=== PATIENT | male | born 1950 ===

== ENCOUNTER 2022-01-07 20:58 | Observation (INO) | payer OTHER, SELFPAY ==
[2022-01-07] VITALS (9 sets, daily range): BP systolic 143–147; BP diastolic 63–66; PULSE 75–92; RESP 15–23; TEMP 36.2; O2SAT 94–100
--- NOTE | ~2022-01-07 | NM_ITS ---
EXAMINATION: NM sabra stress w perfusion DATE: 01/08/2022 09:27 INDICATION: Chest pain TECHNIQUE: Rest images were obtained following intravenous administration of 11.8 mCi Tc99m tetrofosm in (Myoview). The patient was infused intravenously with Lexiscan (Regadenoson). Then, 34 mCi Tc99m t etrofosmin (Myoview) was administered intravenously, and stress images were obtained. Data was recons tructed into short axis and horizontal and vertical long axis SPECT images. Gated SPECT images were a lso obtained. COMPARISON: None. FINDINGS: There is no definite reversible or fixed perfusion abnormality to suggest ischemia or infar ction. There is normal left ventricular chamber size, wall motion and ejection fraction. Left ventr icular ejection fraction measures >70%. IMPRESSION: 1. Normal myocardial perfusion at rest and during stress. 2. Left ventricular ejection fraction measuring >70%. Reviewed, dictated and finalized at location A.
--- NOTE | ~2022-01-07 | XR_ITS ---
EXAMINATION: XR chest 2V DATE: 01/07/2022 22:04 INDICATION: Left-sided chest pain TECHNIQUE: PA and lateral views of the chest are obtained. COMPARISON: 05/01/2011 FINDINGS: The lungs are free of acute opacities. No pleural effusion or pneumothorax. The cardiomedia stinal silhouette is normal. There are bridging osteophytes at multiple levels in the spine, consiste nt with diffuse idiopathic skeletal hyperostosis (DISH). There is an acute fracture at the lateral as pect of the left fourth rib. IMPRESSION: 1. No acute cardiopulmonary abnormality. 2. Acute fracture at the lateral aspect of the left fourth rib. Reviewed, dictated and finalized at location A.
--- NOTE | 2022-01-07 20:59 | ECG_ITS ---
Measurements Intervals [place] Rate: 88 P: 39 HI: 177 QRS: -43 QRSD: 98 T: 79 QT: 317 QTc: 385 Interpretive Statements SINUS RHYTHM LEFT AXIS DEVIATION BASELINE ARTIFACT NONSPECIFIC T-WAVE ABNORMALITY BORDERLINE ECG NO PREVIOUS ECG AVAILABLE FOR COMPARISON Electronically Signed On 01-08-2022 16:03:46 CDT by Elliott Yarbrough M.D.
[2022-01-07 21:14] LABS: Basophils Percent Auto 0.5 % (0.2-1.2); Eosinophils Absolute Auto 0.2 K/mm3 (0-0.3); Eosinophils Percent Auto 1.9 % (0-4.4); Hematocrit 45.2 % (42.0-52.0); Hemoglobin 14.8 g/dL (14.0-18.0); Immature Granulocyte Absolute 0.04 K/mm3 (0.00-0.031); Immature Granulocyte Percent A 0.5 % (0-0.5); Lymphocytes Absolute Auto 1.78 K/mm3 (0.9-3.2); Lymphocytes Percent Auto 22.4 % (18.3-44.2); Mean Corpuscular HGB Conc 32.7 g/dl (32-36); Mean Corpuscular Volume 97.6 fl (80-100); Mean Platelet Volume 10.8 fl (7.4-10.4); Monocytes Absolute Auto 0.6 K/mm3 (0.1-0.6); Monocytes Percent Auto 7.3 % (2.6-8.5); Neutrophils Absolute Auto 5.3 K/mm3 (1.3-6.7); Neutrophils Percent Auto 67.4 % (45.5-73.1); Platelet Count Result 185 k/mm3 (150-375); Red Blood Count 4.63 M/mm3 (4.6-6.20); Red Cell Distribution Width 14.6 % (11.5-14.5); White Blood Count 7.9 K/mm3 (4.5-10.0)
[2022-01-07 21:25] LABS: INR 1.2; Prothrombin Time 14.3 Seconds (11.1-14.7)
[2022-01-07 21:26] LABS: Alanine Aminotransferase 32 U/L (6-50); Albumin Level 4.7 g/dL (3.5-5.1); Alkaline Phosphatase 44 U/L (38-126); Anion Gap 12 mmol/L (8-16); Aspartate Amino Transferase 33 U/L (17-59); Bilirubin,Total 0.8 mg/dL (0.2-1.3); Blood Urea Nitrogen 25 mg/dL (9-20); Calcium 9.9 mg/dL (8.4-10.2); Carbon Dioxide 27 mmol/L (22-30); Chloride 104 mmol/L (98-107); Estimated CRCL calculation 55 ml/min; Estimated Glomerular Filt Rate > 60; Glucose 107 mg/dL (65-110); Lipase 83 U/L (23-300); Partial Thromboplastin Time 35.8 SECONDS (22.3-36.8); Potassium 3.8 mmol/L (3.4-5.0); Sodium 143 mmol/L (137-145)
[2022-01-07 21:37] LABS: Troponin I < 0.012 ng/mL (0.000-0.034)
[2022-01-07] MEDS: ASPIRIN 81 MG CHEWABLE TABLET 324 MG PO (22:37)
--- NOTE | 2022-01-07 23:01 | PC.NURSE ---
Report given to IDRIS Pabon.
--- NOTE | 2022-01-07 23:04 | ED.CHESTPAIN ---
HPI - Chest Pain General Chief Complaint: Chest Pain Stated Complaint: CP Time Seen by Provider: 01/07/22 22:13 History of Present Illness HPI narrative: Patient is a 71-year-old male with a history of tobacco use, hyperlipidemia, hypertension presenting with chest pain. Patient states that he has a chronic cough from smoking. States that for the last 2 days he has had left-sided chest pain whenever he coughs. States that he also has the chest pain if he turns a certain way. He denies an exertional component to it. Endorses mild shortness of breath. No lightheadedness or palpitations. Denies fevers or chills, abdominal pain, nausea or vomiting, diarrhea, dysuria, leg swelling. Patient is vaccinated for COVID-19. Related Data Home Medications Medication Instructions Recorded Confirmed aspirin 81 mg tablet,delayed 81 mg PO DAILY 12/27/21 01/08/22 release (Adult Aspirin Regimen) multivitamin (One-A-Day Essential 1 tablet PO DAILY 12/27/21 01/08/22 tablet) fenofibrate 160 mg tablet 160 mg PO DAILY 01/08/22 01/08/22 omeprazole 20 mg capsule,delayed 20 mg PO DAILY 01/08/22 01/08/22 release simvastatin 40 mg tablet 40 mg PO DAILY 01/08/22 01/08/22 tamsulosin 0.4 mg capsule 0.4 mg PO BID 01/08/22 01/08/22 Allergies Allergy/AdvReac Type Severity Reaction Status Date / Time oxycodone AdvReac Unknown Nausea Verified 01/07/22 22:15 ASA AdvReac Nausea Uncoded 01/07/22 22:15 Review of Systems Review of Systems: All systems reviewed & are unremarkable except as noted in HPI and below PMFSH Past Medical History Medical History Decreased ROM of left shoulder Hx of fracture of patella Right Right shoulder pain Rotator cuff arthropathy Shoulder pain, bilateral Vision abnormalities Surgical History Surgical History History of carpal tunnel surgery of left wrist Family History Family History Father Myocardial infarction Sibling Mesothelioma Other Family history of arthritis Hypertension Social History Social History Smoking packs per day: 1 Smoking cigarettes per day: 20.0 Years smoked: 60 Smoking pack-years: 60.00 Smoking status: Current every day smoker Tobacco type: cigarettes Second hand tobacco smoke exposure: No Smoking end date: 02/02/19 Alcohol intake: current Drinks per week: 3 Substance use: never Substance use type: does not use Has the Lack of Transportation Kept You From Medical Appointments or From Getting Medications?: No Within the Past 12 Months, Were You Worried Whether Your Food Would Run Out Before You Got Money to Buy More?: Never True What is Your Housing Situation Today?: I Have Housing Are You Worried That in the Next 2 Months, You May Not Have Your Own Housing to Live In?: No Do You Have Trouble Paying Your Heating Or Electricity Bill?: No Do You Have Trouble Paying For Medicines?: No Are You Currently Unemployed and Looking for Work?: No Highest Level of Education Completed: High School Diploma/GED Do You Have Trouble With Childcare or the Care of a Family Member?: No Gender identity (if verbalized by the patient): Male Spiritual care concerns: No Exam Narrative: GENERAL: Well-appearing, well-nourished, and in no acute distress. HEAD: Normocephalic, atraumatic. EYES: PERRLA and EOMI. ENT: Nares clear, no rhinorrhea or epistaxis. Mucous membranes moist. NECK: Supple. CHEST: Diffuse wheezing, worse in the left lung. No respiratory distress. HEART: Regular rate and rhythm. No murmur heard. Normal peripheral pulses. ABDOMEN: Soft, nontender, nondistended, normal active bowel sounds. EXTREMITIES: Normal range of motion. No edema. SKIN: Warm, dry, no rash. NEURO: No focal deficits. Alert and oriented x3.
[2022-01-07] MEDS: IPRATROPIUM BR 0.02% INH SOLN 0.5 MG/2.5 ML VIAL INHALATION (23:12)
[2022-01-07] MEDS: ALBUTEROL SULFATE NEB 2.5 MG/3 ML INH 10 MG INHALATION (23:12)
--- NOTE | 2022-01-07 23:27 | PC.NURSE ---
Report received from IDRIS Ferrell. Assumed care of patient at this time.
[2022-01-07] MEDS: methylPREDNISolone SOD SUCC 125 MG VIAL IV PUSH (23:46)
[2022-01-08] VITALS (26 sets, daily range): BP systolic 135–158; BP diastolic 63–84; PULSE 63–89; RESP 16–25; TEMP 35.9–36.9; O2SAT 90–100; BMI 29.7
[2022-01-08 00:37] LABS: Influenza A QL RT-PCR Negative (Negative); Influenza B QL RT-PCR Negative (Negative); SARS-CoV-2 RNA PCR Negative
[2022-01-08 00:58] LABS: Troponin I < 0.012 ng/mL (0.000-0.034)
--- NOTE | 2022-01-08 01:09 | PM.IMHP ---
H&P: HPI History of Present Illness Date/Time: 01/08/22 01:09 Chief Complaint: chest pain Narrative: This is a 71-year-old male with past medical history significant for dyslipidemia, GERD, benign prostatic hyperplasia, tobacco dependence, smokes a pack of cigarettes daily. patient presents to the emergency room due to right-sided chest discomfort which is worse with movement he was also noted to be wheezing received a breathing treatment, patient has cough which is productive of white sputum which is his usual, denies any fevers, rigors, chills, nausea, vomiting, abdominal pain. Pain is localized to the precordial area , nonradiating, patient denies any with lightheadedness, dizziness, syncope, near syncope. Has been in his usual state of health up until this time. Patient tested negative for influenza a, B and COVID-19. preliminary workup has been essentially nonrevealing. Patient is been admitted for further evaluation management and treatment Review of Systems Review of Systems: chest pain Constitutional: Constitutional: Denies chills, Denies fatigue, Denies fever(s), Denies lethargy, Denies malaise and Denies poor appetite Eyes: Eyes: Denies change in vision ENT: Denies dysphagia, Denies vertigo, Denies dizziness and Denies odynophagia Cardiovascular: Cardiovascular: Reports chest pain, Denies syncope, Denies irregular heart rhythm, Denies leg edema, Denies lightheadedness, Denies radiating jaw, neck or arm pain and Denies palpitations Respiratory: Respiratory: Reports cough Gastrointestinal: Gastrointestinal: Denies abdominal pain, Denies dyspepsia, Denies heartburn, Denies diarrhea, Denies nausea and Denies vomiting Genitourinary: Genitourinary: Denies dysuria Musculoskeletal: Musculoskeletal: Denies myalgias Integumentary/Breasts: Skin/Breast: Denies rash Neurologic: Denies vertigo, Denies dizziness, Denies focal weakness and Denies Sensory deficit (Neuro) Psychiatric: Psychiatric: Reports no additional psychiatric complaints and Reports as per HPI Endocrine: Endocrine: Denies cold intolerance, Denies flushing, Denies heat intolerance, Denies polyphagia, Denies polydipsia and Denies palpitations Hematologic/Lymphatic: Hematologic/Lymphatic: Reports no additional hematologic/lymphatic complaints and Reports as per HPI Allergic/Immunologic: Allergic/Immunologic: Reports no additional allergic/immunologic complaints and Reports as per HPI [facility] Past Medical History Medical History Decreased ROM of left shoulder Hx of fracture of patella Right Right shoulder pain Rotator cuff arthropathy Shoulder pain, bilateral Vision abnormalities Surgical History Surgical History History of carpal tunnel surgery of left wrist Family History Family History (Updated 01/08/22 @ 01:52 by MARTINA Ivory) Father Myocardial infarction Sibling Mesothelioma Other Family history of arthritis Hypertension Social History Social History Smoking packs per day: 1 Smoking cigarettes per day: 20.0 Years smoked: 60 Smoking pack-years: 60.00 Smoking status: Current every day smoker Tobacco type: cigarettes Second hand tobacco smoke exposure: No Smoking end date: 02/02/19 Alcohol intake: current Drinks per week: 3 Substance use: never Substance use type: does not use Gender identity (if verbalized by the patient): Male Spiritual care concerns: No Has the Lack of Transportation Kept You From Medical Appointments or From Getting Medications?: No Within the Past 12 Months, Were You Worried Whether Your Food Would Run Out Before You Got Money to Buy More?: Never True What is Your Housing Situation Today?: I Have Housing Are You Worried That in the Next 2 Months, You May Not Have Your Own Housing to Live In?: No
--- NOTE | 2022-01-08 01:53 | ADMGEN ---
This patient, Zacarias Boyd, was admitted to IMU Room 202-01. Patient/family oriented to hospital policies and general routines including ID bracelet, bed and alarms, visiting hours, pain management, procedures, bathroom and other care routines, personal items, smoking policy, room service/diet, and visiting hours. Information on how to activate the Rapid Response Team has been discussed. Patient/Family are encouraged to report perceived risks to care and to ask questions if they do not understand what they are told or what they should do.
--- NOTE | 2022-01-08 03:12 | EST_ITS ---
Patient Info Name: Zacarias Boyd Age: 71 years : 1950 Gender: Male Ht: 70 in Wt: 207 lbs BSA: 2.18 m2 Exam Date: 01/08/2022 8:32 AM Exam Location: [facility] Stress Patient Status: Outpatient Admit Date: 01/08/2022 Staff Ordering Physician: John Davidson MD Attending Provider: John Davidson MD Exercise Technologist: Lima Jenkins RDCS Exercise Physician: Sheldon Marks DO Exam Type: CA stress sabra w NM Study Info Indications R07.9 - Chest pain, unspecified A regadenoson stress test was performed. Summary 1. 1. Negative lexiscan stress test for ischemic ST changes by ECG criteria. 2. 2. Baseline hypertension. 3. 3. Nuclear scan to follow and will be reported separately. Please correlate with it. 4. 4. Patient informed of the above results. Protocol: Lexiscan Stress ECG Details Stage: REST Duration (min): 0 min : 43 sec HR (bpm): 64 SBP (mmHg): 149 DBP (mmHg): 76 Stage: REST Duration (min): 13 min : 5 sec HR (bpm): 66 SBP (mmHg): 149 DBP (mmHg): 76 Stage: STAGE 1 Duration (min): 0 min : 59 sec HR (bpm): 84 SBP (mmHg): 149 DBP (mmHg): 76 Stage: RECOVERY Duration (min): 1 min : 0 sec HR (bpm): 98 SBP (mmHg): 149 DBP (mmHg): 59 Stage: RECOVERY Duration (min): 2 min : 0 sec HR (bpm): 96 SBP (mmHg): 149 DBP (mmHg): 59 Stage: RECOVERY Duration (min): 3 min : 0 sec HR (bpm): 90 SBP (mmHg): 146 DBP (mmHg): 57 Stage: RECOVERY Duration (min): 4 min : 0 sec HR (bpm): 87 SBP (mmHg): 146 DBP (mmHg): 57 Stage: RECOVERY Duration (min): 4 min : 47 sec HR (bpm): 90 SBP (mmHg): 143 DBP (mmHg): 58 Rest HR: 66 bpm Peak HR: 98 bpm Rest Sys BP: 149 mmHg Peak Sys BP: 151 mmHg Max Pred HR: 147 bpm % Max Pred HR: 67 % Target HR: 125 bpm Max RPP: 14,798 bpm*mmHg Termination Reason: Completed protocol Cardiac Symptoms: Shortness of breath Total Time: 1 min : 0 sec Rest David BP: 76 mmHg Peak David BP: 58 mmHg Total Dose: 0.4 mg Resting ECG Sinus rhythm, first degree AV block. Stress ECG No ST changes. Arrhythmias None. Report Signatures
[2022-01-08 03:36] LABS: Troponin I < 0.012 ng/mL (0.000-0.034)
[2022-01-08] MEDS: ALBUTEROL SULFATE NEB 2.5 MG/3 ML INH INHALATION ×2 (04:45→10:28)
[2022-01-08] MEDS: IPRATROPIUM BR 0.02% INH SOLN 0.5 MG/2.5 ML VIAL INHALATION ×2 (04:45→10:29)
[2022-01-08] MEDS: SIMVASTATIN 20 MG TABLET 40 MG PO (09:38)
[2022-01-08] MEDS: TAMSULOSIN HCL 0.4 MG CAPSULE PO (09:38)
[2022-01-08] MEDS: PANTOPRAZOLE 40 MG TABLET PO (09:39)
[2022-01-08] MEDS: ASPIRIN 81 MG ENTERIC TABLET PO (09:39)
[2022-01-08] MEDS: MULTIVITAMINS THERAPEUTIC TAB (*BKC) 1 TABLET PO (09:39)
[2022-01-08] MEDS: FENOFIBRATE 160 MG TABLET PO (09:39)
--- NOTE | 2022-01-08 12:00 | PM.DS ---
DS: Admitting Diagnosis Discharge Date January 08, 2022 Admitting Diagnosis chest pain DS: Discharge Diagnosis Discharge Diagnosis (1) Chest pain: Code(s): R07.9 - Chest pain, unspecified Status: Acute (2) Nicotine dependence, cigarettes, with other nicotine-induced disorders: Code(s): F17.218 - Nicotine dependence, cigarettes, with other nicotine-induced disorders Status: Acute (3) Emphysema, unspecified: Code(s): J43.9 - Emphysema, unspecified Status: Acute (4) Benign prostatic hyperplasia with lower urinary tract symptoms: Code(s): N40.1 - Benign prostatic hyperplasia with lower urinary tract symptoms Status: Acute (5) Gastro-esophageal reflux disease without esophagitis: Code(s): K21.9 - Gastro-esophageal reflux disease without esophagitis Status: Acute DS: Summary Hospital Course Hospital Course: patient for chest pain, negative stress test. Troponins negative. Fractured rib noted. He can be discharged home Time Spent with Patient Time attestation: Total time spent providing and/or coordinating discharge services: Exam Narrative: General: alert and oriented Psych: appropriate mood nad affect Eyes: PERRLA Neck: Trachea midline, no new lesions Skin: no changes Lungs: CTA Cardiac: Normal S1,S2, no MGR ABD: soft, nd, nt, nbs Ext: no new lesions, no cce Vasc: Pulses intact DS: Data Data Completed and Pending Labs on day of discharge: Labs from last 24 hours 01/08/22 01/08/22 01/07/22 03:02 00:14 23:49 WBC RBC Hgb Hct MCV MCH MCHC RDW Plt Count MPV Immature Gran % (Auto) Neut % (Auto) Lymph % (Auto) [place] % (Auto) Eos % (Auto) Baso % (Auto) Lymph # (Auto) [place] # (Auto) Eos # (Auto) Baso # (Auto) Abs Immat Gran (auto) Absolute Neuts (auto) Absolute Nucleated RBC Nucleated RBC % PT INR APTT Sodium Potassium Chloride Carbon Dioxide Anion Gap BUN Creatinine Estim Creat Clear Calc Estimated GFR Glucose Calcium Total Bilirubin AST ALT Alkaline Phosphatase Troponin I < 0.012 < 0.012 Total Protein Albumin Lipase Influenza A (RT-PCR) Negative Influenza B (RT-PCR) Negative SARS-CoV-2 RNA (RT-PCR) Negative 10/23/22 10/23/22 10/23/22 21:07 21:07 21:07 WBC 7.9 RBC 4.63 Hgb 14.8 Hct 45.2 MCV 97.6 MCH 32.0 MCHC 32.7 RDW 14.6 H Plt Count 185 MPV 10.8 H Immature Gran % (Auto) 0.5 Neut % (Auto) 67.4 Lymph % (Auto) 22.4 [place] % (Auto) 7.3 Eos % (Auto) 1.9 Baso % (Auto) 0.5 Lymph # (Auto) 1.78 [place] # (Auto) 0.6 Eos # (Auto) 0.2 Baso # (Auto) 0.0 Abs Immat Gran (auto) 0.04 H Absolute Neuts (auto) 5.3 Absolute Nucleated RBC 0.0 Nucleated RBC % 0.0 PT 14.3 INR 1.2 APTT 35.8 Sodium 143 Potassium 3.8 Chloride 104 Carbon Dioxide 27 Anion Gap 12 BUN 25 H Creatinine 1.10 Estim Creat Clear Calc 55 Estimated GFR > 60 Glucose 107 Calcium 9.9 Total Bilirubin 0.8 AST 33 ALT 32 Alkaline Phosphatase 44 Troponin I < 0.012 Total Protein 8.0 Albumin 4.7 Lipase 83 Influenza A (RT-PCR) Influenza B (RT-PCR) SARS-CoV-2 RNA (RT-PCR) Discharge Plan Discharge Attending physician on discharge: Brijesh Taveras Discharging Clinician: Brijesh Taveras Patient Disposition: Home, Self-Care Activity: no preference Diet: as tolerated Patient Instructions: Antibiotic Form, How to Stop Smoking (DC) Stand Alone Forms: General Discharge Information Follow-up/Referrals: Dany Terrazas MD [Primary Care Provider] - Discharge Medications: Continued multivitamin [One-A-Day Essential] Tablet 1 tablet PO DAILY aspirin [Adult Aspirin Regimen] 81 mg tablet,delayed release (DR/EC) 81
== END 2022-01-08 15:02 | disposition home or self-care (01) ==
LOC: ANHED 22:39 → ANHIMU 01-08 02:43
PROVIDERS: Admitting Provider Internal Medicine; Emergency Provider Emergency Medicine; PCP Family Medicine Adolescent Medicine; Visit Provider Chiropractor
DX: R07.9 Chest pain, unspecified (principal); J43.9 Emphysema, unspecified; F17.218 Nicotine dependence, cigarettes, with other nicotine-induced disorders; E78.5 Hyperlipidemia, unspecified; I10 Essential (primary) hypertension; K21.9 Gastro-esophageal reflux disease without esophagitis; N40.0 Benign prostatic hyperplasia without lower urinary tract symptoms; Z20.822 Contact with and (suspected) exposure to COVID-19
CPT/HCPCS: 36415; 71046; 78452; 80053; 83690; 84484; 85025; 85610; 85730; 87502; 93005; 93017; 94640; 96374; 99285; A9270; A9502; C9803; G0378; J2785; J2930; U0003; U0005

== ENCOUNTER 2024-05-25 09:15 | Outpatient (CLI) | payer OTHER, SELFPAY ==
--- NOTE | ~2024-05-25 | US_ITS ---
EXAMINATION: US [facility] DATE: 05/25/2024 09:31 INDICATION: Abdominal aortic aneurysm screening. TECHNIQUE: Grayscale, color Doppler, and pulsed Doppler images of the aorta and common iliac arteries were obtained. COMPARISON: None. FINDINGS: The aorta demonstrates a 3.6 cm fusiform infrarenal aneurysm. The right common iliac artery is normal in caliber. The left common iliac artery is normal in caliber. IMPRESSION: 1. 3.6 cm fusiform aneurysm of infrarenal aorta. Reviewed, dictated and finalized at location B.
== END 2024-05-25 09:16 | disposition home or self-care (01) ==
LOC: GOSHIMG 09:15
PROVIDERS: PCP Family Medicine; Visit Provider Family Medicine
DX: I71.43 Infrarenal abdominal aortic aneurysm, without rupture (principal); F17.218 Nicotine dependence, cigarettes, with other nicotine-induced disorders
CPT/HCPCS: 76706

== ENCOUNTER 2024-06-10 09:52 | Outpatient (CLI) | payer OTHER, SELFPAY ==
--- NOTE | ~2024-06-10 | CT_ITS ---
EXAMINATION: CT lung screening DATE: 06/10/2024 10:06 INDICATION: Lung cancer screening TECHNIQUE: Computed tomography (CT) of the chest was performed without intravenous contrast. The dose -length product was 161.81 mGy-cm. Automated exposure control and iterative reconstruction technique were employed. COMPARISON: CT dated 05/01/2011 FINDINGS: No thoracic lymphadenopathy. There is atherosclerosis of the aorta and coronary arteries. H eart size normal. No significant pleural or pericardial effusion. Upper abdomen is unremarkable. Heal ed left fourth rib fracture. There is emphysema. No endobronchial lesions. There is dependent atelect asis. No pneumothorax. There is a 1.4 cm right apical pleural-based mass, image 27 series 4 and Ntractive s 604 image 46. This nodule is new compared with prior CT. There is a 2 mm left upper lobe nodule. Th ere is a 2 mm fissural nodule on the right. IMPRESSION: 1. Lung RADS category 4B (very suspicious, greater than 15% chance of malignancy). Recommend further evaluation with pet/CT and/or tissue sampling. Reviewed, dictated and finalized at location A. IMPRESSION: 1. Lung RADS category 4B (very suspicious, greater than 15% chance of malignanc y). Recommend further evaluation with pet/CT and/or tissue sampling.
== END 2024-06-10 09:53 | disposition home or self-care (01) ==
LOC: GOSHIMG 09:53
PROVIDERS: PCP Family Medicine; Visit Provider Family Medicine
DX: Z12.2 Encounter for screening for malignant neoplasm of respiratory organs (principal); F17.218 Nicotine dependence, cigarettes, with other nicotine-induced disorders; R91.8 Other nonspecific abnormal finding of lung field
CPT/HCPCS: 71271

== ENCOUNTER 2024-07-02 12:16 | Outpatient (CLI) | payer OTHER, SELFPAY ==
--- NOTE | ~2024-07-02 | PE_ITS ---
EXAMINATION: PET skull to mid thigh DATE: 07/02/2024 14:01 INDICATION: Solitary pulmonary nodule TECHNIQUE: Blood glucose level was 98 mg/dL. 9.64 mCi of 18-fluorodeoxyglucose (18-FDG) was administe red i.v. Low dose computed tomography (CT) images were acquired from the base of the brain to the pro ximal thighs for attenuation correction and anatomic localization. Positron emission tomography (PET) images were acquired in the same distribution beginning 48 minutes after injection. Images including fused PET/CT images were reconstructed in axial, coronal, and sagittal planes. Automated exposure co ntrol technique was employed. The dose-length product was 1271.48mGy-cm. COMPARISON: Chest CT dated 06/10/2024 FINDINGS: Head/neck: There is symmetric increased activity in the oral cavity, lingual tonsils, laryngeal muscles and ocul ar muscles without CT correlate, likely physiologic. There is mild increased FDG uptake with maximal SUV of 4.6 associated with a normal-sized, 12 x 6 mm right submandibular lymph node. No pathologicall y enlarged cervical lymphadenopathy or other suspicious foci of increased FDG uptake in the visualize d head or neck. Chest: Mild emphysema. No uptake associated with the 1.4 cm nodular opacity at the anterior right apex. When viewed on the prior reformatted sagittal CT images the nodule is either pleural-based or potentially subpleural and associated with the immediately adjacent first sternocostal joint. Mild dependent ate lectasis in the bilateral lower lobes. No other suspicious pulmonary nodules, pneumonia, pulmonary ed shahrzad or pleural effusion. Heart size normal. Atherosclerotic coronary artery calcific location. Aortic valve calcification and normal caliber thoracic aorta. There are couple FDG avid normal-sized left a xillary lymph nodes, the larger and more FDG avid with maximal SUV of 5.6 measures 1.7 x 0.6 cm which is compressed most entirely by large central fatty hilum with maximal cortical thickness of 3 mm. No other pathologically enlarged or FDG avid thoracic lymphadenopathy. Abdomen/pelvis/proximal thighs: Physiologic renal accumulation and excretion of FDG activity in the kidneys, bladder and along portio ns of ureters. Diffuse hepatic steatosis. Normal degree and heterogenous pattern of increased uptake throughout the liver without radiologic correlate or dominant FDG avid lesion. The gallbladder, pancr eas, spleen and bilateral adrenal glands are normal. Mild to moderate uptake scattered throughout the bowels without radiologic correlate, also likely physiologic. Scattered colonic diverticulosis witho ut adjacent inflammatory stranding to suggest diverticulitis. Normal appendix. Small bilateral fat-co ntaining inguinal hernias. No other abnormal foci of increased FDG uptake or pathologically enlarged lymphadenopathy in the abdomen, pelvis or proximal thighs. Musculoskeletal: Old healed left fourth rib fracture. No suspicious lytic, blastic or abnormally FDG avid bone lesions . Small focus of likely extravasated uptake at the injection site at the left hand. IMPRESSION: 1. No uptake associated with the previous noted nodular opacity anterior left apex which appears pleu ral-based or more likely subpleural associated with the anterior first costochondral articulation. Al though reassuring would recommend 6 month follow-up low-dose noncontrast chest CT. 2. Mild uptake associated with a couple likely reactive normal-sized left axillary and a normal-sized right submandibular lymph nodes. Reviewed, dictated and finalized at location A. IMPRESSION: 1. No uptake associated with the previous noted nodular opacity anterior left a pex which appears pleural-based or more likely subpleural associated with the a nterior first costochondral articulation. Although reassuring would recommend 6 month follow-up low-dose noncontrast chest CT. 2. Mild uptake associated with a couple likely reactive normal-sized left axill pravin and a normal-sized right submandibular lymph nodes.
--- OUTSIDE RECORDS SUMMARY | 2024-07-02 12:40 | XMS_ITS ---
Author Name Leighann WHITMORE, MRS. Nava npal Address [id number] [place] [address] [place] [address] Phone [phone] Organization [facility] Care Team Providers Care Field Representatives Director Name Role Phone Leighann Jennyfer Unavailable [phone] [facility] CHW ([facility]), Carlie Kenney Unavailable Unavailable [facility] Tier 1 RN (STL), Bouchra Reardon U navailable Unavailable BENI NAPIER Unavailable [phone] Reason for Referral Not Available Allergies, adverse reactions, alerts Allergen Type Reaction Severity Status Onset Date Hydrocodone Allergy to substance (disorder) GI intolerance U nknown Active N/A History of medication use Medication Class Instructions Start Date End Date Simvastatin 40 mg Tab 1 tablet orally da mone in the evening 2023-12-23 No Data Available Omeprazole 20 mg Cap delayed rel 1 capsule orally daily 1/2 to 1 hour before morning meal 2023-12-23 No Data Available Tamsulosin 0.4 mg Cap 1 capsule orally daily 7 No Data Available Fenofibrate 160 mg Tab 1 tablet orally daily 7 No Data Available Aspirin 81 mg Tab delayed rel 1 tablet every other day 2023-12-24 No Data Availab le Centrum Silver Tab No Data Available 2023-12-24 No D jeffy Available Aleve 220 mg Tab 1 tablet orally ever y 12 hours with food or milk as needed 2023-12-24 No Data Available Breztri Aerosphere 160-9-4.8 MCG/ACT Aerosol Inhalation 2 puffs inhaled orally 2 times per day 2023-12-24 No Data Available Albuterol Sulfate HFA 108 (90 Base) MCG/ACT Aerosol Solution Inhalation INHALE 2 PUFFS BY MOUTH EVERY 6 HOURS NEEDED FOR WHEEZING OR SHORTNESS OF BREATH 2023-12-24 No Data Available Problem List Problem Status Onset Date Resolved Date Hyperlipemia Active 2023-12-24 N/A GERD (gastroesophageal reflux disease) Active 09-01-08 N/A BPH (benign prostatic hyperplasia) Active 2023-03 0-08 N/A COPD (chronic obstructive pulmonary disease) Active 2023-12-24 N/A Tobacco dependence Active 2023-12-24 N/A Prediabetes Active 2023-12-24 N/A Colon cancer screening Active 2023-12-24 N/A Arthritis Active 2023-12-24 N/A Encounters Encounters Type Facility Date of Service Diagnosis/Co mplaint Home visit for evaluation and management of new patient requiring medically appropriate examination and moderate level of medical decision making. If using time, at least 60 minutes total time on enco [facility] [place] 12/24/2023 Hyperlipidemia, unspecifiedGastro-esophageal reflux disease without esophagitisEnlarged prostate without lower urinary tract symptomsChronic obstructive pulmonary disease, unspecifiedNicotine dependence, unspecified, uncomplicatedPrediabetesEncounte r for screening for malignant neoplasm of colonUnspecified osteoarthritis, unspecified siteBody mass index (bmi) 31.0-31.9, adult Vital Signs Date of Collection Vitals 2023-12-24 17:32:00 Height - 177.8 cmWei ght - 99.79 kgBody Mass Index (BMI) - 31.57 kg/m2BP Diastolic - 80.0 mm[Hg]BP Systolic - 160.0 mm[Hg]Heart Rate - 65.0 /minRespiratory Rate - 16.0 /minBody Temperature - 36.72 CelO2 % BldC Oximetry - 96.0 % Social History Social History Social History Observation Description Effec tive Time Current Smoking Status Current some day smoker 2 025-04-17 Sex Male History of Procedures Procedures Service Procedure code Service date Servicing provider Phone# Home visit for evaluation and management of new patient requiring medically appropriate examination and moderate level of medical decision making. If using time, at least 60 minutes total time on [employer] [address] 2023-12-25 No Data Available No Data Availa ble Functional Status No Information Mental Status No Information Assessments Date of Service Assessments 2023-12-24 17:32:00 HyperlipemiaGERD (ga stroesophageal reflux disease)BPH (benign prostatic hyperplasia)COPD (chronic obstructive pulmonary disease)Tobacco dependencePrediabetesColon cancer screeningArthritis Plan of Care Date of Service Plans 2023-12-24 17:32:00 Last f/u Aicha - 05/2023- annual visit and PRNchronictriglycerides 160, HDL 33, LDL 108continue fenofibrate and simvastatindiscussed heart healthy dietchroniccontinue omeprazoleavoid trigger foodschronic; stablecontinue Tamsulosinquit smokingnew rx sent: Breztri inhaler BID and albuterol inhaler PRNtelehealth PH follow up 01/24/2024quit smokinglast A1C 6.2lifestyle modificationsoverdue for C-scopeHas cologuard kit at home - encouraged to complete it and mail it Dawna vs RArecommended Tylenol arthritis OTC PRN pain relief Goals Date Goal 2023-12-25 Discussed cutting ba ck on caffeine intake. Currently at about 4 cups and to reduce to 2 cups. 2023-12-25 Telehealth PH follow up on 01/24/2024; inhalers and cologuard Health Concerns Date Concern 2023-12-25 Healthy [facility] Calls is a service that involves a physician or advanced practice provider conducting comprehensive assessments in your patient s home or virtually to address crucial areas such as chronic conditions, quality gaps, social concerns, fall risk prevention, and various screenings. Please note that your patient will remain attributed to you even though they are participating in this service. If you have any questions, please reach out directly to our team at the phone number above.Your patient, Zacarias Boyd, 1950, was seen today for a Healthy House Call visit. Patient read rights and responsibilities and consented to treatment. The purpose of this summary is to update you on the patient's current health status and share any relevant findings from the examination. 2023-12-25 Patient is in the pr ocess of trying to quit smoking. He reports he has cut back on the amount of cigarettes. 2023-12-25 He does complain of dyspnea with simple tasks such as putting on his shoes. He reports being on inhalers at one point and when they finished, he did not ask for refills. can hear him wheeze sometimes when sitting. 2023-12-25 Reports bilateral moy nd swelling and pain. Sometimes has a hard making a fist
[2024-07-02 12:41] LABS: Glucose Point of Care 98 mg/dl (65-105)
== END 2024-07-02 12:17 | disposition home or self-care (01) ==
PROVIDERS: PCP Family Medicine; Visit Provider Family Medicine
DX: R91.1 Solitary pulmonary nodule (principal)
CPT/HCPCS: 78815; A9552

== ENCOUNTER 2024-12-04 08:46 | Outpatient (CLI) | payer OTHER, SELFPAY ==
--- NOTE | ~2024-12-04 | CT_ITS ---
EXAMINATION: CT chest high resolution wo co DATE: 12/04/2024 09:08 INDICATION: R91.1 - Solitary pulmonary nodule TECHNIQUE: Computed tomography (CT) of the chest was performed without intravenous contrast. Additional 3D reconstructions utilizing coronal maximum intensity projection (MIP) were performed. Automated exposure control and iterative reconstruction technique were employed. The dose-length product was 39 5.97 mGy-cm. COMPARISON: PET/CT dated 07/02/[address] dated 06/10/2024 and 05/01/2011 FINDINGS: Mild to moderate upper lung and paraseptal predominant emphysema. No interval change in a subpleural pseudo nodule at the anterior right apex associated with the first costosternal articulation. Unchanged 7 mm nodule at the lateral basilar right lower lobe which is been present since 2011 consistent with old granulomatous disease.. Also unchanged are a couple nodules at the left upper lobe measuring 2 mm and 3-4 mm. No new or enlarging pulmonary nodules, pneumonia, pulmonary edema or pleural effusion. Heart size is normal. Atherosclerotic coronary artery calcifications. No pericardial effusion. Thor acic aorta is normal in caliber. No pathologically enlarged thoracic lymphadenopathy. Diffuse hepatic steatosis. Mild thoracic spondylosis with bridging osteophytes at multiple levels consistent with diffuse idiopathic skeletal hyperostosis (DISH). IMPRESSION: 1. No interval change in a subpleural pseudo nodule at the anterior right apex associated with the right first costosternal articulation. 2. Mild to moderate emphysema with no change in a chronic 7 mm noncalcified granulomata the right lung base and a couple <4 mm left upper lobe nodules. Recommend continuing with annual screening low-dose noncontrast chest CT. Reviewed, dictated and finalized at location A. IMPRESSION: 1. No interval change in a subpleural pseudo nodule at the anterior right apex associated with the right first costosternal articulation. 2. Mild to moderate emphysema with no change in a chronic 7 mm noncalcified gra nulomata the right lung base and a couple <4 mm left upper lobe nodules. Recomm end continuing with annual screening low-dose noncontrast chest CT.
== END 2024-12-04 08:47 | disposition home or self-care (01) ==
LOC: GOSHIMG 08:46
PROVIDERS: PCP Family Medicine; Visit Provider Family Medicine
DX: R91.1 Solitary pulmonary nodule (principal); J43.9 Emphysema, unspecified
CPT/HCPCS: 71250